=== PATIENT | male | born 1930 | race Caucasian/White ===

== ENCOUNTER 2016-06-28 17:12 | Emergency (ER) | payer BC ==
[2015-03-19 12:07] VITALS: Ht 177.8 cm; Wt 83.9 kg
[~2016-06-28] VITALS: Ht 177.8 cm; Wt 83.9 kg
[~2016-06-28 17:12] MED LIST: BENZ100C67 PO; FURO-150 PO; GLIP-195 PO; GLYB5TAB7 PO; LEVE1000 PO; LEVE750T4 PO; LIS20 PO; LOVA40TA75 PO; POTA-118 PO; PRO-AIR INH; TERA2CAP18 PO; WARF3TAB2 PO; WARF4TAB2 PO; WARF6TAB20 PO; [UNRECOGNIZED DRUG - CODE] PO
[2016-06-28 17:21] VITALS: BP 140/85; PULSE 70; RESP 18; TEMP 98.1; O2SAT 97
[2016-06-28 17:41] LABS: BASOPHILS # (AUTO) 0.1 K/uL (0.0-0.2); BASOPHILS % (AUTO) 1.5 % (0.0-2.0); EOSINOPHILS # (AUTO) 0.2 K/uL (0.0-0.4); EOSINOPHILS % (AUTO) 2.3 % (0.0-4.0); HEMATOCRIT 49.7 % (36-54); HEMOGLOBIN 16.2 g/dL (14.0-18.0); LYMPHOCYTES # (AUTO) 2.1 K/uL (1.0-5.5); LYMPHOCYTES % (AUTO) 27.3 % (20.5-51.5); MEAN CORPUSCULAR HEMOGLOBIN 29 pg (27-31); MEAN CORPUSCULAR HGB CONC 33 % (32-36); MEAN CORPUSCULAR VOLUME 90 fL (79.0-98.0); MONOCYTES # (AUTO) 0.6 K/uL (0.0-1.0); MONOCYTES % (AUTO) 7.7 % (1.7-9.3); NEUTROPHILS # (AUTO) 4.5 K/uL (1.8-7.7); NEUTROPHILS % (AUTO) 61.2 % (40.0-70.0); PLATELET COUNT (AUTO) 151 K/uL (130-430); RED BLOOD CELL COUNT(AUTO) 5.52 MIL/uL (4.2-6.2); RED CELL DISTRIBUTION WIDTH 12.5 % (9.0-15.0); WHITE BLOOD COUNT (AUTO) 7.5 K/uL (4.8-10.8)
[2016-06-28 17:55] LABS: ANION GAP 5 (5-15); CHLORIDE 105 mmol/L (98-107); CREATININE 1.54 mg/dL (0.55-1.30); GLUCOSE 107 mg/dL (70-99); POTASSIUM 4.7 mmol/L (3.5-5.1); SODIUM SERUM 139 mmol/L (136-145); UREA NITROGEN, BLOOD 25 mg/dL (8-21)
[2016-06-28 17:57] LABS: INR 3.2 (0.80-1.20)
[2016-06-28 17:59] LABS: PROTHROMBIN TIME 36.2 SECS (9.5-12.5)
[2016-06-28 18:12] LABS: ALANINE AMINOTRANSFERASE 24 U/L (12-78); ALBUMIN 3.4 g/dL (3.4-4.8); ASPARTATE AMINOTRANSFERASE 17 U/L (10-37); FREE T4 (FREE THYROXINE) 0.8 ng/dL (0.6-1.6); TOTAL BILIRUBIN 0.7 mg/dL (0.0-1.0); TOTAL PROTEIN, SERUM 7.2 g/dL (6.4-8.3)
[2016-06-28 18:13] LABS: BILIRUBIN,URINE NEGATIVE (NEGATIVE); BLOOD, URINE NEGATIVE (NEGATIVE); CLARITY/URINE SL HAZY (CLEAR); COLOR,URINE YELLOW (YELLOW); GLUCOSE,URINE NEGATIVE (NEGATIVE); KETONES,URINE NEGATIVE (NEGATIVE); LEUKOCYTE ESTERASE ,URINE NEGATIVE (NEGATIVE); NITRITE, URINE NEGATIVE (NEGATIVE); PROTEIN URINE NEGATIVE (NEGATIVE); UROBILINOGEN,URINE 0.2 (0.2-1.0)
[2016-06-28 18:18] LABS: ALCOHOL, BLOOD < 3 mg/dL (<10)
[2016-06-28 18:32] LABS: BARBITURATE, URINE NEGATIVE (NEG <=200); BENZODIAZEPINE, URINE NEGATIVE (NEG <=150); CANNABINOID, URINE NEGATIVE (NEG <=50); COCAINE, URINE NEGATIVE (NEG <=150); METHAMPHETAMINES SCREEN,URINE NEGATIVE (NEG <=500); OPIATE, URINE NEGATIVE (NEG <=100); PHENCYCLIDINE SCREEN,URINE NEGATIVE (NEG <=25); UR TRICYCLIC ANTIDEPRESSANTS NEGATIVE (NEG <=300); URINE AMPHETAMINE NEGATIVE (NEG <=500); URINE METHADONE NEGATIVE (NEG <=200); URINE OXYCODONE SCREEN NEGATIVE (NEG <=100); URINE PROPOXYPHENE SCREEN NEGATIVE (NEG <=300)
[2016-06-28 19:20] VITALS: BP 133/81; PULSE 72; RESP 18; TEMP 98; O2SAT 96
== END 2016-06-28 19:20 | disposition home or self-care (01) ==
LOC: SED 17:12
DX: S09.90XA Unspecified injury of head, initial encounter (principal); E11.9 Type 2 diabetes mellitus without complications; I10 Essential (primary) hypertension; Z86.79 Personal history of other diseases of the circulatory system; W01.0XXA Fall on same level from slipping, tripping and stumbling without subsequent striking against object, initial encounter; Y93.89 Activity, other specified; Y92.091 Bathroom in other non-institutional residence as the place of occurrence of the external cause; Y99.8 Other external cause status
CPT/HCPCS: 36415; 70450; 71010; 74000; 80053; 80307; 81003; 82140; 83605; 83880; 84439; 84484; 85025; 85610; 87040; 93005; 99285; G0482

== ENCOUNTER 2016-11-19 08:06 | Inpatient (IN) | payer BC ==
[~2016-11-19] VITALS: Ht 180.3 cm; Wt 83.9 kg
[2016-11-19] VITALS (13 sets, daily range): BP systolic 115–153
[~2016-11-19 08:06] MED LIST changes: -BENZ100C67 PO; -GLYB5TAB7 PO; -LEVE1000 PO; -PRO-AIR INH; -WARF3TAB2 PO; -[UNRECOGNIZED DRUG - CODE] PO
[2016-11-19] MEDS ORDERED: TAMS0.4C96 PO (08:51)
[2016-11-19] MEDS ORDERED: HYDR-1189 PO (08:51)
[2016-11-19] MEDS ORDERED: IPRA12.94 INH (08:51)
[2016-11-19] MEDS ORDERED: IBUP-1480 PO (08:51)
[2016-11-19] MEDS ORDERED: ALBMDI INH (08:51)
[2016-11-19] MEDS ORDERED: WARF1TAB2 PO (08:51)
[2016-11-19] MEDS ORDERED: WARF6TAB20 PO (08:51)
[2016-11-19 09:01] LABS: BASOPHILS # (AUTO) 0.1 K/uL (0.0-0.2); PLATELET COUNT (AUTO) 151 K/uL (130-430)
[2016-11-19 09:06] LABS: BASOPHILS % (AUTO) 0.8 % (0.0-2.0); EOSINOPHILS # (AUTO) 0.1 K/uL (0.0-0.4); EOSINOPHILS % (AUTO) 0.7 % (0.0-4.0); HEMATOCRIT 51.6 % (36-54); HEMOGLOBIN 17.2 g/dL (14.0-18.0); LYMPHOCYTES # (AUTO) 1.4 K/uL (1.0-5.5); LYMPHOCYTES % (AUTO) 10.7 % (20.5-51.5); MEAN CORPUSCULAR HEMOGLOBIN 30 pg (27-31); MEAN CORPUSCULAR HGB CONC 33 % (32-36); MEAN CORPUSCULAR VOLUME 90 fL (79.0-98.0); MONOCYTES # (AUTO) 0.9 K/uL (0.0-1.0); MONOCYTES % (AUTO) 7.1 % (1.7-9.3); NEUTROPHILS # (AUTO) 10.3 K/uL (1.8-7.7); NEUTROPHILS % (AUTO) 80.7 % (40.0-70.0); RED BLOOD CELL COUNT(AUTO) 5.71 MIL/uL (4.2-6.2); RED CELL DISTRIBUTION WIDTH 12.5 % (9.0-15.0); WHITE BLOOD COUNT (AUTO) 12.8 K/uL (4.8-10.8)
[2016-11-19 09:12] LABS: ANION GAP 6 (5-15); CALCIUM 8.7 mg/dL (8.4-11.0); CHLORIDE 104 mmol/L (98-107); CREATININE 1.52 mg/dL (0.55-1.30); GLUCOSE 213 mg/dL (70-99); POTASSIUM 4.9 mmol/L (3.5-5.1); SODIUM SERUM 136 mmol/L (136-145); UREA NITROGEN, BLOOD 24 mg/dL (8-21)
[2016-11-19 09:17] LABS: ALANINE AMINOTRANSFERASE 19 U/L (12-78); ALBUMIN 3.6 g/dL (3.4-4.8); ASPARTATE AMINOTRANSFERASE 20 U/L (10-37); TOTAL BILIRUBIN 1.3 mg/dL (0.0-1.0); TOTAL PROTEIN, SERUM 7.6 g/dL (6.4-8.3)
[2016-11-19 10:49] LABS: INR 2.7 (0.80-1.20)
[2016-11-19 10:53] LABS: PROTHROMBIN TIME 30.1 SECS (9.5-12.5)
[2016-11-19] MEDS ORDERED: ALBUTEROL MDI INHALATION 8 GM INH INH SCH (12:00)
[2016-11-19] MEDS ORDERED: PHYTONADIONE 10 MG/ML AMP SUBCUT ONE (12:15)
[2016-11-19] MEDS ORDERED: hydrALAZINE HCL 20 MG/ML VIAL IVP PRN (12:15)
[2016-11-19] MEDS ORDERED: IPRATROPIUM BROMIDE 17 mCg/ACTUATION, 12.9 GM AER.W.ADAP INH SCH (13:00)
[2016-11-19] MEDS ORDERED: levETIRAcetam 500 MG TABLET PO ONE (13:00)
[2016-11-19] MEDS: NORMAL SALINE 5 ML DISP.SYRIN IVF SCH ×2 (14:19→23:41)
[2016-11-19] MEDS: ALBUTEROL SULFATE 0.083% 2.5 MG/3 ML VIAL.NEB INH SCH ×3 (15:44→23:26)
[2016-11-19] MEDS: IPRATROPIUM BROM 0.5 MG/2.5 ML VIAL.NEB (ATROVENT) INH SCH ×2 (15:44→19:50)
[2016-11-19] MEDS ORDERED: levETIRAcetam 500 MG TABLET PO SCH (21:00)
[2016-11-19] MEDS: levETIRAcetam 500 MG TABLET PO SCH (23:40)
[2016-11-20] VITALS (19 sets, daily range): BP systolic 110–143
[2016-11-20] MEDS: ALBUTEROL SULFATE 0.083% 2.5 MG/3 ML VIAL.NEB INH SCH ×6 (04:49→23:23)
[2016-11-20] MEDS: NORMAL SALINE 5 ML DISP.SYRIN IVF SCH ×3 (06:11→21:18)
[2016-11-20 06:50] LABS: BASOPHILS % (AUTO) 0.4 % (0.0-2.0); EOSINOPHILS % (AUTO) 0.2 % (0.0-4.0); HEMATOCRIT 44.4 % (36-54); HEMOGLOBIN 14.3 g/dL (14.0-18.0); LYMPHOCYTES # (AUTO) 1.2 K/uL (1.0-5.5); MEAN CORPUSCULAR HEMOGLOBIN 30 pg (27-31); MEAN CORPUSCULAR HGB CONC 32 % (32-36); MEAN CORPUSCULAR VOLUME 92 fL (79.0-98.0); MONOCYTES % (AUTO) 10.8 % (1.7-9.3); NEUTROPHILS # (AUTO) 7.1 K/uL (1.8-7.7); NEUTROPHILS % (AUTO) 75.6 % (40.0-70.0); PLATELET COUNT (AUTO) 139 K/uL (130-430); RED BLOOD CELL COUNT(AUTO) 4.81 MIL/uL (4.2-6.2); RED CELL DISTRIBUTION WIDTH 12.5 % (9.0-15.0)
[2016-11-20 07:09] LABS: WHITE BLOOD COUNT (AUTO) 9.3 K/uL (4.8-10.8)
[2016-11-20 07:15] LABS: ALANINE AMINOTRANSFERASE 21 U/L (12-78); ALBUMIN 3.5 g/dL (3.4-4.8); ANION GAP 7 (5-15); ASPARTATE AMINOTRANSFERASE 19 U/L (10-37); CALCIUM 8.6 mg/dL (8.4-11.0); CHLORIDE 105 mmol/L (98-107); CREATININE 1.26 mg/dL (0.55-1.30); GLUCOSE 142 mg/dL (70-99); POTASSIUM 4.7 mmol/L (3.5-5.1); SODIUM SERUM 143 mmol/L (136-145); TOTAL BILIRUBIN 1.8 mg/dL (0.0-1.0); TOTAL PROTEIN, SERUM 7.4 g/dL (6.4-8.3); UREA NITROGEN, BLOOD 19 mg/dL (8-21)
[2016-11-20] MEDS: levETIRAcetam 500 MG TABLET PO SCH ×2 (08:37→21:17)
[2016-11-20 10:03] LABS: INR 1.4 (0.80-1.20); PROTHROMBIN TIME 14.9 SECS (9.5-12.5)
[2016-11-20] MEDS: IPRATROPIUM BROM 0.5 MG/2.5 ML VIAL.NEB (ATROVENT) INH SCH ×4 (11:43→19:40)
[2016-11-20] MEDS: FUROSEMIDE 20 MG TABLET PO SCH (14:47)
[2016-11-20] MEDS ORDERED: HYDROcodone/ACETAMIN 5-325 MG TAB (NORCO/ VICODIN) PO PRN (15:15)
[2016-11-20] MEDS ORDERED: ACETAMINOPHEN 650 MG/20.3 ML UDC PO PRN (15:15)
[2016-11-20] MEDS ORDERED: ACETAMINOPHEN 325 MG TABLET PO PRN (16:15)
[2016-11-21] VITALS: BP_SYST 110
[2016-11-21] MEDS: ALBUTEROL SULFATE 0.083% 2.5 MG/3 ML VIAL.NEB INH SCH ×7 (03:50→23:33)
[2016-11-21 04:03] VITALS: BP_SYST 122
[2016-11-21] MEDS: NORMAL SALINE 5 ML DISP.SYRIN IVF SCH ×3 (05:57→20:31)
[2016-11-21] MEDS: IPRATROPIUM BROM 0.5 MG/2.5 ML VIAL.NEB (ATROVENT) INH SCH ×4 (07:35→19:43)
[2016-11-21 08:00] VITALS: BP_SYST 115
[2016-11-21] MEDS: levETIRAcetam 500 MG TABLET PO SCH ×2 (10:09→20:30)
[2016-11-21] MEDS: FUROSEMIDE 20 MG TABLET PO SCH (10:10)
[2016-11-21 12:00] VITALS: BP_SYST 106
[2016-11-21 17:20] VITALS: BP_SYST 104
[2016-11-21 19:38] VITALS: BP_SYST 123
[2016-11-22 00:25] VITALS: BP_SYST 116
[2016-11-22] MEDS: ALBUTEROL SULFATE 0.083% 2.5 MG/3 ML VIAL.NEB INH SCH ×5 (03:00→23:32)
[2016-11-22 04:00] VITALS: BP_SYST 121
[2016-11-22] MEDS: NORMAL SALINE 5 ML DISP.SYRIN IVF SCH ×3 (06:05→21:29)
[2016-11-22] MEDS: IPRATROPIUM BROM 0.5 MG/2.5 ML VIAL.NEB (ATROVENT) INH SCH ×4 (07:00→20:11)
[2016-11-22] MEDS: levETIRAcetam 500 MG TABLET PO SCH ×2 (08:17→20:50)
[2016-11-22] MEDS: FUROSEMIDE 20 MG TABLET PO SCH (08:22)
[2016-11-22 09:54] VITALS: BP_SYST 121
[2016-11-22 13:08] VITALS: BP_SYST 130
[2016-11-22 18:36] VITALS: BP_SYST 122
[2016-11-22 19:30] VITALS: BP_SYST 116
[2016-11-23 00:22] VITALS: BP_SYST 113
[2016-11-23] MEDS: ALBUTEROL SULFATE 0.083% 2.5 MG/3 ML VIAL.NEB INH SCH ×3 (03:22→12:16)
[2016-11-23 04:12] VITALS: BP_SYST 134
[2016-11-23] MEDS: NORMAL SALINE 5 ML DISP.SYRIN IVF SCH ×2 (05:54→14:00)
[2016-11-23 08:00] VITALS: BP_SYST 141
[2016-11-23] MEDS: levETIRAcetam 500 MG TABLET PO SCH (10:18)
[2016-11-23] MEDS: FUROSEMIDE 20 MG TABLET PO SCH (10:19)
[2016-11-23] MEDS: IPRATROPIUM BROM 0.5 MG/2.5 ML VIAL.NEB (ATROVENT) INH SCH (12:16)
[2016-11-23 13:02] VITALS: BP_SYST 125
[2016-11-23 14:35] VITALS: BP_SYST 135
[2016-11-23 16:37] VITALS: BP_SYST 130
== END 2016-11-23 18:15 | disposition hospice, home (50) | DRG 86 ==
LOC: SED 08:06 → SIC 11:52 → STU 11-20 18:20
PROVIDERS: ADMIT Internal Medicine Hospice and Palliative Medicine; ATTEND Internal Medicine Hospice and Palliative Medicine
PROC: 30233L1 Transfusion of Nonautologous Fresh Plasma into Peripheral Vein, Percutaneous Approach (ICD-10-PCS; principal; 2016-11-19)
PROC: 30233K1 Transfusion of Nonautologous Frozen Plasma into Peripheral Vein, Percutaneous Approach (ICD-10-PCS; 2016-11-19)
PROC: 30233L1 Transfusion of Nonautologous Fresh Plasma into Peripheral Vein, Percutaneous Approach (ICD-10-PCS; 2016-11-20)
PROC: 30233K1 Transfusion of Nonautologous Frozen Plasma into Peripheral Vein, Percutaneous Approach (ICD-10-PCS; 2016-11-20)
DX: S06.5X0A Traumatic subdural hemorrhage without loss of consciousness, initial encounter (principal); D68.69 Other thrombophilia; E11.9 Type 2 diabetes mellitus without complications; E78.00 Pure hypercholesterolemia, unspecified; R53.81 Other malaise; E78.5 Hyperlipidemia, unspecified; I10 Essential (primary) hypertension; I48.2 Chronic atrial fibrillation; I25.10 Atherosclerotic heart disease of native coronary artery without angina pectoris; G40.909 Epilepsy, unspecified, not intractable, without status epilepticus; W19.XXXA Unspecified fall, initial encounter; R29.6 Repeated falls; Y93.89 Activity, other specified; Y92.89 Other specified places as the place of occurrence of the external cause; Y99.8 Other external cause status; Z79.899 Other long term (current) drug therapy; Z79.01 Long term (current) use of anticoagulants; Z95.1 Presence of aortocoronary bypass graft; Z95.2 Presence of prosthetic heart valve
CPT/HCPCS: 36415; 70450-TC; 72040-TC; 72072-TC; 72110; 72125-TC; 72220-TC; 74000-TC; 80053; 82962; 85025; 85610-TC; 85730-TC; 86900; 86901; 87081; 93005; 93306; 94640; 94760; 99285; J0360; J3430; J7050; P9059